=== PATIENT | female | born 1935 | race Caucasian/White ===

== ENCOUNTER → 2017-12-26 09:42 | Outpatient (CLI) | payer MEDICARE, OTHER, SELFPAY | PROVIDERS: Family Provider Family Medicine; PCP Family Medicine; Visit Provider Urology | DX: R30.0 Dysuria (principal); R31.9 Hematuria, unspecified | CPT/HCPCS: 87086; 87088 ==

== ENCOUNTER → 2018-03-27 16:52 | Outpatient (CLI) | payer MEDICARE, OTHER, SELFPAY ==
--- NOTE | 2018-03-27 15:15 | CYSPIN_PTH ---
PATIENT: SUSAN LOPEZ LOC: [facility] U#:[id number] AGE/SX: 89/F ROOM: RE03/27/[address]: Dr. Ky Baca MD : 1935 BED: DIS: SPEC #: [id number] RECD: 03/28/18 08:17 STATUS: QUOC HARPREET #: [id number] CHANTAL: 03/27/18 15:[address]: Ky Baca DEPT: CYTOLOGY RECD BY: Dipesh Josue ENTERED: 03/28/18 08:18 SP TYPE: CYSPIN FL OTHR DR: Dr. Shane Ruff MD Tissues: Urine Procedures: Pap Stain (control) Special Stain Group II Cytospin Fluid HEADER OPERATION: Not noted PRE-OP DIAGNOSIS: Hematuria TISSUE SUBMITTED: Urine for cytology DIAGNOSIS CYTOLOGY Urine for cytology (cytospin): Rare mildly atypical urothelial cells noted. See comment. 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 Case has been reviewed in consultation with Dr. Scott who concurs with the above diagnosis. IDC:AM CYTOLOGY STUDY Slides are reviewed. CYTOLOGY GROSS Received is 40 ml of clear yellow fluid labeled with the patient's name and and designated per the requisition as urine. Submitted for cytology preparation. 03/28/18 TC:5 CPT: 93137
[2018-03-27 19:33] LABS: Cytology, Body Fluid / CSF SEE PATHOLOGY REPORT
== END ==
PROVIDERS: Family Provider Family Medicine; PCP Family Medicine; Referring Provider Urology; Visit Provider Urology
DX: R31.9 Hematuria, unspecified (principal)
CPT/HCPCS: 88108; 88313

== ENCOUNTER → 2018-07-17 10:01 | Outpatient (CLI) | payer MEDICARE, OTHER, SELFPAY ==
--- NOTE | 2018-07-17 10:20 | RAD_ITS ---
PROCEDURE: Fluoroscopic guided Hip Injection DATE: July 17, 2018. INDICATION: Female, 82 years old. Chronic right hip pain. PHYSICIAN: Frantz Lanier M.D. MEDICATIONS: 6 mg of betamethasone and 3 cc of 1% lidocaine. 2% lidocaine administered subcutaneously for local anesthesia. ACCESS SITE: Right hip. NEEDLE: 22-gauge spinal needle. FLUOROSCOPY TIME (if supplied): (0:25) minutes/seconds FINDINGS: The risks, benefits, and alternatives to the procedure were explained to the patient. The specific risks of bleeding, infection, and neurovascular injury were detailed and accepted. Witnessed informed consent was obtained. A 22-gauge spinal needle was positioned under radiographic fluoroscopic localization. Approximately 2 cc of Isovue-300 instilled for localization purposes. Medication was then injected. The patient tolerated the procedure well without any immediate complications. RAD/Inj/Asp Danish Jt Should/Hip/Knee IMPRESSION: 1. Successful fluoroscopic guided hip injection. Electronically Signed: Frantz Lanier, at 11:31 EDT , Service support ,
== END ==
PROVIDERS: Family Provider Family Medicine; PCP Family Medicine; Referring Provider Specialist; Visit Provider Specialist
DX: M16.11 Unilateral primary osteoarthritis, right hip (principal)
CPT/HCPCS: 20610; 77002; Q9967; J0702

== ENCOUNTER → 2019-01-19 | Outpatient (CLI) | payer MEDICARE, OTHER, SELFPAY ==
--- NOTE | 2019-01-19 06:47 | CT_ITS ---
STUDY: CT ABDOMEN AND PELVIS WITH CONTRAST REASON FOR EXAM: Female, 83 years old. Hematuria, history of breast, renal and bladder cancer RADIATION DOSAGE (If Supplied By Facility): CTDIvol = ( 14.11 ) mGy, DLP = ( 1240.24 ) mGycm TECHNIQUE: CT images were obtained from the dome of the diaphragm to the symphysis pubis without oral contrast. IV Isovue 300 100CC was administered. Sagittal and coronal images were reconstructed. Individualized dose optimization techniques were used for this CT. COMPARISON: Extending February 2015 FINDINGS: The visualized lung bases are unremarkable. There is coronary artery disease and pacemaker wires. Normal liver. Normal gallbladder and extrahepatic biliary system. Normal spleen. Normal pancreas. Normal bilateral adrenal glands. Right kidney is surgically removed. Surgical bed is clear. There is a stable left renal cyst. There are no solid renal masses. Adrenal glands are normal. There is no intestinal obstruction. There is sigmoid diverticulosis without diverticulitis. Appendix is surgically removed. Normal abdominal aorta. Normal inferior vena cava. Normal retroperitoneum. Normal urinary bladder. Uterus is surgically removed. Normal abdominal wall. There is osteoporosis without focal destructive, lytic or blastic lesions. Appearance is similar to prior. CT/Abdomen/Pelvis WITH Contrast IMPRESSION: 1. Unremarkable left kidney. 2. Expected appearance of right nephrectomy without local recurrent disease. 3. Unremarkable bladder. Electronically Signed: Karie Rivas, at 17:05 EDT Tel , Service support ,
[2019-01-19 07:05] LABS: CREATININE FINGERSTICK 0.9 mg/dL (0.55-1.02)
== END | disposition home or self-care (01) ==
LOC: CT 06:45
PROVIDERS: Family Provider Family Medicine; PCP Family Medicine; Referring Provider Urology; Visit Provider Urology
DX: R31.9 Hematuria, unspecified (principal)
CPT/HCPCS: 74177; Q9967

== ENCOUNTER 2019-01-21 10:25 | Day surgery (SDC) | payer MEDICARE, OTHER, SELFPAY ==
[2015-03-09 06:01] VITALS: BMI 26.1
--- NOTE | 2019-01-21 10:36 | EKG12_ITS ---
Test Reason : PRE OP Blood Pressure : / mmHG Vent. Rate : 060 BPM Atrial Rate : 060 BPM P-R Int : 186 ms QRS Dur : 178 ms QT Int : 506 ms P-R-T Axes : 039 113 116 degrees QTc Int : 506 ms AV dual-paced rhythm Biventricular pacemaker detected Abnormal ECG When compared with ECG of 04-OCT-2014 13:44, No significant change was found Confirmed by BRITTNEY KARIMI ([id number]), editor continuity and script RONAN JURADO ([id number]) on 01/27/2019 1:14:08 PM Referred By: Ky Baca Confirmed By:BRITTNEY KARIMI
[2019-01-21 10:45] VITALS: BP 140/56; PULSE 60; RESP 16; TEMP 36.4; O2SAT 99; BMI 27.5
[2019-01-21 10:56] LABS: Hematocrit 41.1 % (37-47); Hemoglobin 13.9 g/dL (12.0-15.0); Mean Corp Hgb Conc 33.8 g/dL (32-36); Mean Corpuscular Hgb 32.1 pg (27.0-32.0); Mean Corpuscular Volume 94.9 fL (81-99); Mean Platelet Vol. 9.2 fl (6.2-12.0); Platelet Count 211 K/mm3 (150-450); RBC Distribution Width SD 41.5 fl (35.1-43.9); Red Blood Count 4.33 M/mm3 (4.2-5.4); White Blood Count 8.7 K/mm3 (4.4-11.0)
[2019-01-21] MEDS: Lactated Ringers 1,000 ML 100 ML IV (11:07)
[2019-01-21 11:12] LABS: Anion Gap 3 (5-15); BUN 24 mg/dL (7-18); BUN/Creat Ratio 20.2 RATIO (10-20); Calcium,Total 10.9 mg/dL (8.5-10.1); Chloride 112 mmol/L (98-107); Creatinine, Serum 1.19 mg/dL (0.55-1.02); EST Glomerular Filtration Rate 46 mL/min (>60); Est Glom Filt Rate - Afr Amer 56 mL/min (>60); Estimated Creatinine Clearance 36.17 ml/min; Glucose 127 mg/dL (74-106); Sodium Level 140 mmol/L (136-145)
[2019-01-21 11:19] LABS: Hemoglobin A1c 8.3 % (4.2-6.3)
[2019-01-21 11:30] LABS: Bedside Glucose 128 mg/dL (70-110)
--- NOTE | 2019-01-21 12:25 | BLA_PTH ---
PATIENT: SUSAN LOPEZ LOC: [facility] [place] U#:[id number] AGE/SX: 83/F ROOM: RE01/21/[address]: Dr. Ky Baca MD : 1935 BED: DIS: 01/21/2019 SPEC #: [id number] RECD: 01/21/19 15:48 STATUS: QUOC HARPREET #: [id number] CHANTAL: 01/21/19 12:[address]: Ky Baca DEPT: SURGICAL PATHOLOGY RECD BY: Dipesh Josue ENTERED: 01/22/19 08:02 SP TYPE: BLADDER BX OTHR DR: Dr. Shane Ruff MD Tissues: Urinary bladder, NOS Procedures: Surgery Specimen Level IV HEADER OPERATION: Cystoscopy, bladder biopsy, left retrograde pyelogram PRE-OP DIAGNOSIS: Malignant neoplasm of posterior wall of bladder; gross hematuria; malignant neoplasm of right ureter TISSUE SUBMITTED: Bladder biopsy MICROSCOPIC DIAGNOSIS Urinary bladder, biopsy: Chronic follicular cystitis. AM:thomas 01/23/19 MICROSCOPIC DESCRIPTION Slides are reviewed. GROSS DESCRIPTION Received in fixative is one container labeled with the patient's name and designated bladder biopsy. The specimen consists of one irregular fragment of velasquez soft tissue that measures 0.3 x 0.1 x 0.1 cm. The specimen is totally submitted in one cassette. / SJ:thomas 01/22/19 TC:3 CPT: 95863
[2019-01-21] MEDS: Cefazolin 2 GM in 0.9% Normal Saline 100 ML IV (13:20)
--- NOTE | 2019-01-21 13:42 | DCINST_ITS ---
Discharge Diet: Light diet - advance as tolerated Discharge Activity: Return to Normal Activity Instructions: Transurethral Bladder Biopsy Allergies/Adverse Reactions: Allergies amlodipine Allergy (Verified 01/21/19 10:51) ANXIETY, RACING hydralazine Allergy (Verified 01/19/19 13:41) Unknown codeine Adverse Reaction (Verified 01/19/19 13:41) Upset Stomach oxycodone Adverse Reaction (Verified 01/19/19 13:41) Upset Stomach Medications to take at Discharge Alrex 1 drop LEFT EYE BID 09/02/13 Sotalol HCl [Betapace (Beta Joshua)] 160 mg PO BID 09/02/13 Docusate Sodium [Colace] 300 mg PO DAILY 10/04/14 Furosemide [Lasix] 20 mg PO DAILY 10/04/14 Apixaban [Eliquis] 5 mg PO BID 01/19/19 C,E,Zinc,Copper 11/Czavg6c/Lut [Ocuvite Adult 50 Plus Softgel] 1 ea PO DAILY 01/19/19 Famotidine [Pepcid] 20 mg PO DAILY 01/19/19 Insulin Glargine [Lantus (BKC)] 46 units SUBCUT DAILY 01/19/19 NIFEdipine [Procardia XL] 90 mg PO DAILY 01/19/19 Oxybutynin Chloride [Ditropan Xl] 10 mg PO DAILY 01/19/19 Spironolactone [Aldactone] 50 mg PO DAILY 01/19/19 Ubidecarenone [Co Q10] 200 mg PO DAILY 01/19/19 Valsartan [Diovan] 320 mg PO DAILY 01/19/19 Primary Care Physician: Shane Ruff MD [Primary Care Provider] - Test Results: Test results from this visit will be discussed in further detail at your follow- up appointment, if applicable. Please Follow Up With: Ky Baca MD When: in 2 weeks, please call to make an appointment.
--- NOTE | 2019-01-21 13:47 | PCM.OPRPT ---
Report of Operation Date of Procedure: 01/21/19 Pre-Operative Diagnosis: History of bladder cancer and right ureteral cancer recent gross hematuria Post-Operative Diagnosis: The same Surgery/Procedure Performed:: Cystoscopy bladder biopsy and fulguration of biopsy site, left retrograde pyelogram. Description of Surgical Findings:: 83-year-old female who was seen in the past for history of bladder cancer and right ureteral cancer presents to the office with gross hematuria today when taken to the operating room for cystoscopy bladder biopsy and fulguration and retrograde pyelogram to evaluate her urinary system. 83-year-old female taken back to the operating room at the smooth induction of anesthesia she was placed in dorsolithotomy position, the urethra and vaginal area were prepped and draped in usual fashion on bimanual exam there is no palpable masses, within the bladder was examined with the 30 and 70 degree lens small lesion was seen and the right posterior wall the bladder biopsy was done and this was cauterized. Otherwise no papillary tumors or masses were noted within the bladder some scar tissue. The right ureteral orifice was absent, the left ureteral orifice was present this was cannulated with a Glidewire and a Pollack catheter retrograde pyelogram was performed this was essentially normal with contrast going up to the kidney subcu air bubbles in the contrast but then the kidney was draining normally. After the procedure was done we checked the bladder check the biopsy site fulguration site there is no bleeding patient anesthetic was reversed to take back to PACU good condition. Type of Anesthesia:: General Drains: none - Admit VTE Documentation VTE Present on Admission: No VTE Mechan Device Prophylaxis: SCD's
[2019-01-21 13:58] VITALS: BP 134/95; BP 140/56; PULSE 61; RESP 16; TEMP 36.4; O2SAT 97
[2019-01-21 14:00] VITALS: BP 140/56; BP 140/61; PULSE 61; RESP 16; O2SAT 96
[2019-01-21 14:11] LABS: Bedside Glucose 87 mg/dL (70-110)
[2019-01-21 14:15] VITALS: BP 140/56; BP 143/64; PULSE 60; RESP 16; O2SAT 95
[2019-01-21 14:18] VITALS: BP 140/56; BP 143/64; PULSE 60; RESP 16; O2SAT 95
[2019-01-21 14:51] VITALS: BP 140/56; BP 151/56; PULSE 60; RESP 18; TEMP 36.4; O2SAT 98
== END 2019-01-21 15:10 | disposition home or self-care (01) ==
LOC: SDC 10:26 → AC 10:29
PROVIDERS: Anesthesiology; Family Provider Family Medicine; PCP Family Medicine; Referring Provider Urology; Visit Provider Urology
PROC: 0TBB8ZZ Excision of Bladder, Via Natural or Artificial Opening Endoscopic (ICD-10-PCS; CPT 52005; principal; 2019-01-21 12:15)
DX: N30.31 Trigonitis with hematuria (principal); I48.0 Paroxysmal atrial fibrillation; E11.9 Type 2 diabetes mellitus without complications; K21.9 Gastro-esophageal reflux disease without esophagitis; E78.00 Pure hypercholesterolemia, unspecified; I13.10 Hypertensive heart and chronic kidney disease without heart failure, with stage 1 through stage 4 chronic kidney disease, or unspecified chronic kidney disease; E11.22 Type 2 diabetes mellitus with diabetic chronic kidney disease; N18.3 Chronic kidney disease, stage 3 (moderate); Z95.810 Presence of automatic (implantable) cardiac defibrillator; Z85.51 Personal history of malignant neoplasm of bladder; Z85.54 Personal history of malignant neoplasm of ureter; Z85.528 Personal history of other malignant neoplasm of kidney; Z87.442 Personal history of urinary calculi; Z79.02 Long term (current) use of antithrombotics/antiplatelets; Z79.82 Long term (current) use of aspirin; Z79.4 Long term (current) use of insulin; Z79.899 Other long term (current) drug therapy; Z90.6 Acquired absence of other parts of urinary tract
CPT/HCPCS: 52005; 52204; 36415; 76000; 80048; 82962; 83036; 85027; 88305; 93005; J7120; C1769; J2405

== ENCOUNTER → 2019-02-05 | Outpatient (CLI) | payer MEDICARE, OTHER, SELFPAY ==
[2019-01-21 10:45] VITALS: BMI 27.5
== END | disposition home or self-care (01) ==
PROVIDERS: Family Provider Family Medicine; PCP Family Medicine; Referring Provider Urology; Visit Provider Urology
DX: R82.998 Other abnormal findings in urine (principal)
CPT/HCPCS: 87086; 87088

== ENCOUNTER → 2019-07-06 | Outpatient (CLI) | payer MEDICARE, OTHER, SELFPAY ==
--- NOTE | 2019-07-06 08:55 | RAD_ITS ---
PROCEDURE: Fluoroscopic guided Hip Injection DATE: July 06, 2019. INDICATION: Female, 83 years old. Chronic right hip pain. PHYSICIAN: Frantz Lanier M.D. MEDICATIONS: 6 mg of betamethasone and 3 cc of 1% lidocaine. 2% Lidocaine administered subcutaneously for local anesthesia. ACCESS SITE: Right hip. NEEDLE: 22-gauge spinal needle. FLUOROSCOPY TIME (if supplied): (0:39) minutes/seconds FINDINGS: The risks, benefits, and alternatives to the procedure were explained to the patient. The specific risks of bleeding, infection, and neurovascular injury were detailed and accepted. Witnessed informed consent was obtained. A 22-gauge spinal needle was positioned under radiographic fluoroscopic localization. Approximately 2 cc of Isovue 300 instilled for localization purposes. Medication was then injected. The patient tolerated the procedure well without any immediate complications. RAD/Inj/Asp Danish Jt Should/Hip/Knee IMPRESSION: 1. Successful fluoroscopic guided hip injection. Electronically Signed: Frantz Lanier, at 10:21 EDT , Service support ,
== END | disposition home or self-care (01) ==
LOC: RAD 08:53
PROVIDERS: PCP Family Medicine; Referring Provider Specialist; Visit Provider Specialist
DX: M16.11 Unilateral primary osteoarthritis, right hip (principal)
CPT/HCPCS: 20610; 77002; Q9967; J0702

== ENCOUNTER → 2019-12-31 | Outpatient (CLI) | payer MEDICARE, OTHER, SELFPAY ==
--- NOTE | 2019-12-31 | FLU_PTH ---
PATIENT: SUSAN LOPEZ LOC: [facility] U#:[id number] AGE/SX: 84/F ROOM: RE12/31/[address]: Dr. Ky Baca MD : 1935 BED: DIS: 12/31/2019 SPEC #: [id number] RECD: 12/31/19 14:00 STATUS: QUOC HARPREET #: [id number] CHANTAL: 12/31/19 00:[address]: Ky Baca DEPT: CYTOLOGY RECD BY: Ruthie Nye ENTERED: 01/01/20 12:38 SP TYPE: Fluid OTHR DR: Dr. Shane Ruff MD Tissues: Urine Procedures: Special Stain Group II Cytospin Fluid HEADER OPERATION: Not noted PRE-OP DIAGNOSIS: Malignant neoplasm of posterior wall of bladder TISSUE SUBMITTED: Urine for cytology DIAGNOSIS CYTOLOGY Urine for cytology (cytospin): Negative for malignant cells. Bacterial colonies and acute inflammatory cells. See comment. AM:thomas 01/04/20 COMMENT The specimen primarily contains squamous epithelial cells. Clinical correlation is suggested. CYTOLOGY STUDY Slides are reviewed. CYTOLOGY GROSS Received is 40 ml of yellow hazy fluid labeled with the patient's name and and designated per the requisition as urine. Submitted for cytology preparation. / thomas 01/01/20 TC:2 CPT: 46655
[2019-12-31 17:21] LABS: Cytology, Body Fluid / CSF SEE PATHOLOGY REPORT
== END | disposition home or self-care (01) ==
LOC: LABSPEC 16:22
PROVIDERS: PCP Family Medicine; Referring Provider Urology; Visit Provider Urology
DX: C67.4 Malignant neoplasm of posterior wall of bladder (principal)
CPT/HCPCS: 88108; 88313

== ENCOUNTER → 2020-06-06 14:05 | Outpatient (CLI) | payer MEDICARE, OTHER, SELFPAY ==
--- NOTE | 2020-06-06 14:09 | CT_ITS ---
STUDY: CT FACIAL BONES WITHOUT CONTRAST REASON FOR EXAM: Female, 84 years old. ANOSMIA, CHRONIC SINUSITIS LEFT GREATER THAN RIGHT. RADIATION DOSAGE (If Supplied By Facility): CTDIvol = ( 33.45 ) mGy, DLP = ( 814.00 ) mGycm TECHNIQUE: The patient was scanned in a multi detector CT scanner. Sagittal and coronal images were reconstructed. Individualized dose optimization techniques were used for this CT. COMPARISON: None. FINDINGS: Normal soft tissue structures. Normal orbital valdes and orbital contents. Normal nasal bones and anterior nasal spine. Normal facial bones. There is no demonstrated fracture. There is opacification of the left maxillary sinus. The ostiomeatal complex on the left side is obliterated due to the inflammatory changes in the left maxillary sinus. There is hypertrophy of the inferior turbinate in the right nasal fossa. CT/Sinus/Facial Bone IMPRESSION: Opacification of the left maxillary sinus with obliteration of the left ostiomeatal complex. Electronically Signed: Frantz Lanier MD at 15:14 EST , Service support ,
== END ==
PROVIDERS: PCP Family Medicine; Referring Provider Otolaryngology; Visit Provider Otolaryngology
DX: R43.0 Anosmia (principal)
CPT/HCPCS: 70486

== ENCOUNTER → 2020-07-29 | Outpatient (CLI) | payer MEDICARE, OTHER, SELFPAY | END | disposition home or self-care (01) | LOC: LABSPEC 14:34 | PROVIDERS: PCP Family Medicine; Referring Provider Otolaryngology; Visit Provider Otolaryngology | DX: Z11.52 Encounter for screening for COVID-19 (principal) | CPT/HCPCS: 87635; C9803; U0002 ==

== ENCOUNTER → 2021-01-30 | Outpatient (CLI) | payer MEDICARE, OTHER, SELFPAY ==
--- NOTE | 2021-01-30 14:54 | CYSPIN_PTH ---
PATIENT: SUSAN LOPEZ LOC: [facility] U#:[id number] AGE/SX: 85/F ROOM: RE01/30/[address]: Dr. Ky Baca MD : 1935 BED: DIS: 01/30/2021 SPEC #: [id number] RECD: 01/30/21 15:48 STATUS: QUOC RE #: [id number] CHANTAL: 01/30/21 14:[address]: Ky Baca DEPT: CYTOLOGY RECD BY: Catalina Armas ENTERED: 01/31/21 07:27 SP TYPE: CYSPIN FL OTHR DR: Dr. Shane Ruff MD Tissues: Urine Procedures: Pap Stain (control) Special Stain Group II Cytospin Fluid HEADER OPERATION: Not noted PRE-OP DIAGNOSIS: Malignant neoplasm of bladder TISSUE SUBMITTED: Urine for cytology DIAGNOSIS CYTOLOGY Urine for cytology (cytospin): Rare mildly atypical urothelial cells noted. Acute inflammation. See comment. SJ:thomas 01/31/2021 COMMENT Clinical correlation and appropriate follow up are necessary. Please make reference to previous specimens ([id number]) right kidney and ureter with diagnosis of ?papillary urothelial carcinoma,? and ([id number]) posterior wall bladder, biopsy with diagnosis of ?flat urothelial carcinoma with focal area of lamina propria invasion,? and ([id number]) urinary bladder, TUR with diagnosis of ?urothelial carcinoma.? Case has been reviewed in consultation with Dr. Scott who concurs with the above diagnosis. IDC:AM CYTOLOGY STUDY Slides are reviewed. CYTOLOGY GROSS Received is 20 ml of clear gold fluid labeled with the patient's name and and designated per the requisition as urine. Submitted for cytology preparation. / thomas 01/31/2021 TC:2 CPT: 80640
[2021-01-30 15:48] LABS: Cytology, Body Fluid / CSF SEE PATHOLOGY REPORT
== END | disposition home or self-care (01) ==
PROVIDERS: PCP Family Medicine; Referring Provider Urology; Visit Provider Urology
DX: Z85.51 Personal history of malignant neoplasm of bladder (principal)
CPT/HCPCS: 88108; 88313

== ENCOUNTER → 2022-03-19 | Outpatient (CLI) | payer MEDICARE, OTHER, SELFPAY ==
--- NOTE | 2022-03-19 17:01 | CYSPIN_PTH ---
PATIENT: SUSAN LOPEZ LOC: [facility] U#:[id number] AGE/SX: 86/F ROOM: RE03/19/[address]: Dr. Ky Baca MD : 1935 BED: DIS: 03/19/2022 SPEC #: [id number] RECD: 03/20/22 07:19 STATUS: QUOC REPippa #: [id number] CHANTAL: 03/19/22 17:[address]: Ky Baca DEPT: CYTOLOGY RECD BY: Catalina Armas ENTERED: 03/20/22 07:19 SP TYPE: CYSPIN FL OTHR DR: Dr. Shane Ruff MD Tissues: Urine Procedures: Pap Stain (control) Special Stain Group II Cytospin Fluid HEADER OPERATION: Not noted PRE-OP DIAGNOSIS: Malignant neoplasm of bladder TISSUE SUBMITTED: Urine for cytology DIAGNOSIS CYTOLOGY Urine for cytology (cytospin): Occasional atypical urothelial cells present (Vandana Category III). See comment. AM:thomas 03/20/2022 COMMENT The Vandana System for urine cytology diagnostic categorization was used in the evaluation of this case. CYTOLOGY STUDY Slides are reviewed. CYTOLOGY GROSS Received is 30 ml of yellow cloudy fluid labeled with the patient's name and and designated per the requisition as urine. Submitted for cytology preparation. / thomas 03/19/2022 TC:? CPT: 28891
[2022-03-19 17:02] LABS: Cytology, Body Fluid / CSF SEE PATHOLOGY REPORT
== END | disposition home or self-care (01) ==
LOC: LABSPEC 16:50
PROVIDERS: PCP Family Medicine; Visit Provider Urology
DX: C67.4 Malignant neoplasm of posterior wall of bladder (principal)
CPT/HCPCS: 88108; 88313

== ENCOUNTER → 2023-03-21 | Outpatient (CLI) | payer MEDICARE, OTHER, SELFPAY ==
--- NOTE | 2023-03-21 | CYSPIN_PTH ---
PATIENT: SUSAN LOPEZ LOC: [facility] U#:[id number] AGE/SX: 87/F ROOM: RE03/21/[address]: Dr. Ky Baca MD : 1935 BED: DIS: 03/21/2023 SPEC #: [id number] RECD: 03/22/23 09:17 STATUS: QUOC REQ #: [id number] CHANTAL: 03/21/23 00:[address]: Ky Baca DEPT: CYTOLOGY RECD BY: Catalina Armas ENTERED: 03/22/23 09:17 SP TYPE: CYSPIN FL OTHR DR: Dr. Shane Ruff MD Tissues: Urine Procedures: Pap Stain (control) Special Stain Group II Cytospin Fluid HEADER OPERATION: Not noted PRE-OP DIAGNOSIS: Malignant neoplasm of bladder TISSUE SUBMITTED: Urine for cytology DIAGNOSIS CYTOLOGY Urine for cytology (cytospin): Negative for high-grade urothelial carcinoma (NHGUC), Vandana System Category II. See comment. AM:thomas 03/22/2023 COMMENT The Vandana System for urine cytology diagnostic categorization was used in the evaluation of this case. CYTOLOGY STUDY Slides are reviewed. CYTOLOGY GROSS Received is 80 ml of light yellow cloudy fluid labeled with the patient's name and and designated per the requisition as urine. Submitted for cytology preparation. / thomas 03/21/2023 TC:5 CPT: 70992
[2023-03-21 17:01] LABS: Cytology, Body Fluid / CSF SEE PATHOLOGY REPORT
== END | disposition home or self-care (01) ==
LOC: LABSPEC 16:24
PROVIDERS: PCP Family Medicine; Referring Provider Urology; Visit Provider Urology
DX: C67.4 Malignant neoplasm of posterior wall of bladder (principal)
CPT/HCPCS: 88108; 88313